=== PATIENT | male | born 1985 | race Caucasian/White ===

== ENCOUNTER 2019-10-02 19:54 | Emergency (ER) | payer OTHER, SELFPAY ==
[~2019-10-02] VITALS: Ht 182.9 cm; Wt 93.2 kg
[2019-10-02 19:55] VITALS: BP 154/75
[2019-10-02] MEDS ORDERED: no home meds (20:02)
--- NOTE | 2019-10-03 07:48 | REP ---
Clinical: Trauma. Fall on outstretched hand. Technique: AP, lateral, bilateral oblique views. Findings: The carpal bones, surrounding osseous structures, soft tissues, and joint spaces are normal. There is no evidence for acute fracture or dislocation. No subcutaneous emphysema or radiodense foreign body. Impression: Normal wrist series. No acute fracture or dislocation. If the patient remains symptomatic consider reevaluation in 3-5 days including scaphoid view if necessary. Electronically Signed by Randall Meza MD 10/03/2019 07:40 A
== END 2019-10-02 21:15 | disposition home or self-care (01) ==
LOC: M ED 19:54
DX: G56.01 Carpal tunnel syndrome, right upper limb (principal)

== ENCOUNTER 2019-10-13 10:55 | Emergency (ER) | payer OTHER ==
[~2019-10-13] VITALS: Ht 185.4 cm; Wt 93.2 kg
[~2019-10-13 10:55] MED LIST: no home meds
[2019-10-13] MEDS ORDERED: KETOROLAC 60 MG/2 ML VIAL (J1885) IM ONE (13:30)
[2019-10-13] MEDS ORDERED: CYCLOBENZAPRINE 10 MG TAB PO ONE (13:30)
[2019-10-13] MEDS ORDERED: ACETAMINOPHEN 325 MG TAB PO ONE (13:30)
--- NOTE | 2019-10-13 13:42 | REP ---
CT cervical spine: 10/13/2019. Indication: Neck trauma. Neck pain. Comparison: None. Technique: Unenhanced axial CT images of the cervical spine were obtained with coronal and sagittal reconstructions provided. Findings: There is no acute fracture, subluxation or dislocation. There is slight reversal of the cervical lordosis centered at C5/C6. No hemorrhage or additional acute post traumatic sequelae within the spinal canal are detected. The visualized lungs are clear. Mild degenerative C5/C6 and C6/C7 sequelae are present. There are no areas of significant spinal canal or neural foraminal narrowing detected. Impression: No acute osseous injury of the cervical spine. Electronically Signed by George Dwyer DO 10/13/2019 01:34 P
[2019-10-13] MEDS ORDERED: CYCL10TA PO (14:52)
[2019-10-13] MEDS ORDERED: KETO10TAB PO (14:52)
[2019-10-13 15:03] VITALS: BP 120/68
== END 2019-10-13 15:04 | disposition home or self-care (01) ==
LOC: M ED 10:55
DX: S46.819A Strain of other muscles, fascia and tendons at shoulder and upper arm level, unspecified arm, initial encounter (principal); V49.49XA Driver injured in collision with other motor vehicles in traffic accident, initial encounter; Y92.410 Unspecified street and highway as the place of occurrence of the external cause
CPT/HCPCS: 72125; 96372; 99284; J1885

== ENCOUNTER 2022-06-17 05:13 | Emergency (ER) | payer MEDICAID, OTHER ==
[~2022-06-17] VITALS: Ht 182.9 cm; Wt 105.9 kg
[~2022-06-17 05:13] MED LIST changes: +CYCL-707 PO; +KETO10TAB PO
[2022-06-17] MEDS ORDERED: KETOROLAC 60MG 2ML VIAL IM ONE (07:55)
[2022-06-17] MEDS ORDERED: ACETAMINOPHEN 500 MG TAB PO ONE (07:55)
[2022-06-17] MEDS ORDERED: MEDR4PAK PO (09:19)
[2022-06-17] MEDS ORDERED: CYCL-707 PO (09:20)
[2022-06-17] MEDS ORDERED: NAPR-837 PO (09:20)
[2022-06-17 09:56] VITALS: BP 112/74
== END 2022-06-17 12:56 | disposition home or self-care (01) ==
LOC: EDBD 05:13 → M ED 05:13
DX: M51.17 Intervertebral disc disorders with radiculopathy, lumbosacral region (principal)
CPT/HCPCS: 72110; 96372; 99284; J1885

== ENCOUNTER → 2022-10-16 | Outpatient (REF) ==
[~2022-10-16] MED LIST changes: +MEDR4PAK PO; +NAPR-837 PO
== END ==
LOC: M PLAIMG 10:23
PROVIDERS: ATTEND Internal Medicine
DX: M51.36 Other intervertebral disc degeneration, lumbar region (principal)

== ENCOUNTER → 2024-03-14 | Outpatient (CLI) | payer OTHER | LOC: M SLEEP HO 10:26 | PROVIDERS: ATTEND Physician Assistant Medical | DX: G47.33 Obstructive sleep apnea (adult) (pediatric) (principal) ==

== ENCOUNTER 2024-11-24 13:16 | Emergency (ER) | payer OTHER ==
[~2024-11-24] VITALS: Ht 182.9 cm; Wt 109.4 kg
[2024-11-24 14:01] LABS: KETONE, URINE AUTO RFX NEGATIVE (NEGATIVE); LEUKOCYTE ESTERASE UR AUTO RFX NEGATIVE (NEGATIVE); RBC, URINE AUTO RFX 0 /HPF (0-3); SQUAM EPITHELIAL CELL UR AURFX 0 /HPF (0-6); WBC, URINE AUTO RFX 0 /HPF (0-3)
[2024-11-24 14:03] LABS: NITRITE, URINE AUTO RFX POSITIVE (NEGATIVE)
[2024-11-24 14:08] LABS: BASO % 0.5 % (0.0-1.0); EOS # 0.2 10^3/uL (0.0-0.5); EOS % 2.9 % (0.0-3.0); HEMATOCRIT 47.8 % (42.0-52.0); HEMOGLOBIN 16.5 g/dl (13.5-17.5); LYMPH # 1.9 10^3/uL (1.5-5.0); LYMPH % 25.5 % (24.0-44.0); MEAN CORPUSCULAR HEMOGLOBIN 29.7 pg (27.0-33.0); MEAN CORPUSCULAR HGB CONC 34.5 g/dl (32.0-36.5); MEAN CORPUSCULAR VOLUME 86.1 fl (80.0-96.0); MONO # 0.7 10^3/uL (0.0-0.8); MONO % 9.8 % (2.0-8.0); NEUTROPHILS # 4.6 10^3/uL (1.5-8.5); NEUTROPHILS % 61.2 % (36.0-66.0); PLATELET COUNT, AUTOMATED 249 10^3/uL (150-450); RED BLOOD COUNT 5.55 10^6/uL (4.30-6.10); WHITE BLOOD COUNT 7.5 10^3/uL (4.0-10.0)
[2024-11-24 14:40] LABS: ALBUMIN 4.2 G/DL (3.2-5.2); BILIRUBIN,DIRECT 0.1 MG/DL (<0.4); BILIRUBIN,TOTAL 0.5 MG/DL (0.3-1.2); TOTAL PROTEIN 7.2 G/DL (5.7-8.2)
[2024-11-24] MEDS ORDERED: IBUP-1022 PO (15:25)
[2024-11-24] MEDS ORDERED: CYCL-707 PO (15:25)
[2024-11-24 15:45] VITALS: BP 119/80; O2SAT 95
[2024-11-24 15:57] VITALS: TEMP 98.2
== END 2024-11-24 15:59 | disposition home or self-care (01) ==
LOC: M ED 13:16
DX: S39.012A Strain of muscle, fascia and tendon of lower back, initial encounter (principal); X58.XXXA Exposure to other specified factors, initial encounter; Y92.9 Unspecified place or not applicable; Y93.9 Activity, unspecified; Y99.9 Unspecified external cause status